=== PATIENT | male | born 1940 | race Caucasian/White ===

== ENCOUNTER → 2021-12-19 | Outpatient (CLI) | payer MEDICARE, BC, SELFPAY ==
[2021-12-19 17:19] LABS: T4 Free Direct 1.34 ng/dL (0.76-1.46)
[2021-12-21 07:35] LABS: Thyroid Peroxidase AB < 8 IU/mL (0-34)
== END | disposition home or self-care (01) ==
LOC: BMS.EMR 15:00
PROVIDERS: PCP Internal Medicine Infectious Disease; Referring Provider Internal Medicine Endocrinology, Diabetes & Metabolism; Visit Provider Internal Medicine Endocrinology, Diabetes & Metabolism
DX: E03.9 Hypothyroidism, unspecified (principal)
CPT/HCPCS: 36415; 84439; 84443; 86376